=== PATIENT | female | born 1955 | race Caucasian/White ===

== ENCOUNTER 2023-01-02 09:31 | Day surgery (SDC) | payer MEDICARE, OTHER ==
[~2023-01-02] VITALS: Ht 157.5 cm; Wt 81.6 kg
[2023-01-02] MEDS ORDERED: fentaNYL citrate 0.05 MG/ML VIAL ONE (10:27)
[2023-01-02] MEDS ORDERED: LIDOCAINE 2% 100 MG/5 ML UJET TP ONE (10:27)
[2023-01-02] MEDS ORDERED: fentaNYL citrate 0.05 MG/ML VIAL IVP ONE (12:25)
== END 2023-01-02 11:45 | disposition home or self-care (01) ==
LOC: MMU 09:31 → MOR 09:31
PROVIDERS: ATTEND Internal Medicine Gastroenterology
DX: K62.5 Hemorrhage of anus and rectum (principal); D12.0 Benign neoplasm of cecum; D12.2 Benign neoplasm of ascending colon; K64.9 Unspecified hemorrhoids; I10 Essential (primary) hypertension; E11.9 Type 2 diabetes mellitus without complications; E78.5 Hyperlipidemia, unspecified; K57.30 Diverticulosis of large intestine without perforation or abscess without bleeding; Z90.49 Acquired absence of other specified parts of digestive tract; Z88.1 Allergy status to other antibiotic agents; Z79.84 Long term (current) use of oral hypoglycemic drugs; Z79.899 Other long term (current) drug therapy
CPT/HCPCS: 45385; 82948; J3010